=== PATIENT | female | born 1995 | race Two or more races ===

== ENCOUNTER 2017-06-19 18:16 | Emergency (ER) | payer SELFPAY ==
[2017-06-19 18:21] VITALS: BP 120/67; PULSE 66; RESP 16; TEMP 97.9; O2SAT 99
--- NOTE | 2017-06-19 19:12 | ED PDOC ---
HPI: Dental Pain/Injury Time Seen by Provider: 06/19/17 18:49 Chief Complaint (Nursing): Dental Pain Chief Complaint (Provider): dental pain Additional Complaint(s): 21yo F in ED for eval of tooth pain x 2 weeks admits to pain, sore thoart, fever chills has not been seen by a dentist. Past Medical History Reviewed: Historical Data, Nursing Documentation, Vital Signs Vital Signs: Last Vital Signs Temp 97.9 F 06/19/17 18:19 Pulse 66 06/19/17 18:19 Resp 16 06/19/17 18:19 BP 120/67 06/19/17 18:19 Pulse Ox 99 06/19/17 18:19 - Medical History PMH: No Chronic Diseases - Family History Family History: States: No Known Family Hx - Home Medications Home Medications: Ambulatory Orders Medication Instructions Recorded Amoxicillin [Amoxil 500 mg Cap] 500 mg PO BID #20 cap 06/19/17 - Allergies Allergies/Adverse Reactions: Allergies Allergy/AdvReac Type Severity Reaction Status Date / Time No Known Allergies Allergy Verified 06/19/17 18:21 Review of Systems ROS Statement: Except As Marked, All Systems Reviewed And Found Negative ENT: Positive for: Mouth Pain Physical Exam - Reviewed Nursing Documentation Reviewed: Yes Vital Signs Reviewed: Yes - Physical Exam Appears: Positive for: Well, Non-toxic, No Acute Distress Skin: Positive for: Normal Color, Warm, DRY ENT: Positive for: Other (mouth: upper molar rao drainage around gums ,tooth decay noted. ) Neurologic/Psych: Positive for: Alert, Oriented - ECG O2 Sat by Pulse Oximetry: 99 Medical Decision Making Medical Decision Making: toothache-will be given amoxicillin and advised to have dental f.u given a list. Disposition - Clinical Impression Clinical Impression: Dental caries - Patient ED Disposition Is Patient to be Admitted: No Counseled Patient/Family Regarding: Diagnosis, Need For Followup, Rx Given - Disposition Disposition: Routine/Home Disposition Time: 19:15 Condition: STABLE Prescriptions: Amoxicillin [Amoxil 500 mg Cap] 500 mg PO BID #20 cap Instructions: Dental Caries (ED) Forms: [employer] ([place])
== END 2017-06-19 19:19 | disposition home or self-care (01) ==
LOC: H.ER 18:16
DX: K02.9 Dental caries, unspecified (principal)